=== PATIENT | female | born 1965 | race Caucasian/White ===

== ENCOUNTER → 2023-11-28 06:28 | Day surgery (SDC) | payer OTHER, SELFPAY | LOC: GI 06:28 | PROVIDERS: ATTENDING PHYSICIAN Internal Medicine | DX: Z12.11 Encounter for screening for malignant neoplasm of colon (principal); K64.4 Residual hemorrhoidal skin tags; K57.30 Diverticulosis of large intestine without perforation or abscess without bleeding; K63.5 Polyp of colon; Z86.010 Personal history of colon polyps | CPT/HCPCS: 45381 ==

== ENCOUNTER 2024-02-13 06:29 | Day surgery (SDC) | payer OTHER, SELFPAY ==
[2024-02-13 07:41] VITALS: BMI 30.2
[2024-02-13 07:42] VITALS: BMI 30.2
[2024-02-13 07:45] VITALS: BP 123/84
[2024-02-13 10:42] VITALS: BP 108/80
[2024-02-13 10:45] VITALS: BP 110/73
[2024-02-13 11:00] VITALS: BP 116/78
== END 2024-02-13 11:25 | disposition home or self-care (01) ==
LOC: GI 06:29
PROVIDERS: ATTENDING PHYSICIAN Internal Medicine Gastroenterology
DX: C18.1 Malignant neoplasm of appendix (principal); K64.0 First degree hemorrhoids; Q43.8 Other specified congenital malformations of intestine
CPT/HCPCS: 45390; 88305; 88341; 88342

== ENCOUNTER → 2024-03-11 13:55 | Outpatient (REF) | payer OTHER, SELFPAY | LOC: HWRAD 13:55 | PROVIDERS: ATTENDING PHYSICIAN Surgery Surgical Oncology; FAMILY PHYSICIAN Family Medicine | DX: C18.2 Malignant neoplasm of ascending colon (principal) | CPT/HCPCS: 71260; 74177; Q9967 ==

== ENCOUNTER → 2024-06-08 07:35 | Outpatient (REF) | payer BC, OTHER, SELFPAY | LOC: PAVMRI 07:35 | PROVIDERS: ATTENDING PHYSICIAN Internal Medicine; FAMILY PHYSICIAN Family Medicine | DX: F41.9 Anxiety disorder, unspecified (principal); C18.2 Malignant neoplasm of ascending colon; Z51.11 Encounter for antineoplastic chemotherapy | CPT/HCPCS: 74183; A9575 ==